=== PATIENT | female | born 1950 | race Hispanic/Latino ===

== ENCOUNTER 2021-03-27 12:49 | Emergency (ER) | payer MEDICARE ==
[~2021-03-27] VITALS: Ht 157.5 cm; Wt 56.7 kg
[2021-03-27] MEDS: SODIUM CHLORIDE 0.9% 1000ML 1,000 ML IV SCH ×2 (13:38→13:40)
[2021-03-27] MEDS ORDERED: SODIUM CHLORIDE 0.9% 1000ML 1,000 ML ONE (13:45)
[2021-03-27] MEDS ORDERED: ACETAMINOPHEN 325 MG TAB ONE (13:45)
[2021-03-27] MEDS ORDERED: ACETAMINOPHEN 325 MG TAB PO ONE (14:00)
[2021-03-27 16:00] VITALS: BP 210/85
== END 2021-03-27 16:00 | disposition home or self-care (01) ==
LOC: FSED 13:01
DX: I10 Essential (primary) hypertension (principal); F32.A Depression, unspecified
CPT/HCPCS: 36415; 80053; 81003; 82553; 84443; 84484; 85025; 93005; 99283; J7030

== ENCOUNTER 2021-10-15 18:38 | Emergency (ER) | payer MEDICARE ==
[~2021-10-15] VITALS: Ht 157.5 cm; Wt 56.7 kg
[2021-10-15] MEDS ORDERED: SODIUM CHLORIDE 0.9% 1000ML 1,000 ML ONE (20:39)
[2021-10-15] MEDS ORDERED: ONDANSETRON HCL INJ 2MG/ML 2ML 2 MG/ML VIAL ONE (20:39)
[2021-10-15] MEDS ORDERED: ONDANSETRON HCL INJ 2MG/ML 2ML 2 MG/ML VIAL IV STA (21:29)
[2021-10-15] MEDS ORDERED: SODIUM CHLORIDE 0.9% 1000ML 1,000 ML IV SCH (21:30)
[2021-10-15] MEDS ORDERED: KETOROLAC TROMETHAMINE 30 MG/ML VIAL IV STA (21:32)
[2021-10-15] MEDS ORDERED: PROMETHAZINE HCL (IM) 25 MG/ML VIAL IM ONE (21:40)
[2021-10-15] MEDS ORDERED: KETOROLAC TROMETHAMINE 30 MG/ML VIAL ONE (21:40)
[2021-10-15] MEDS ORDERED: PROMETHAZINE 12.5MG/ NACL 0.9% 12.5 MG/50 ML BAG IV ONE (21:45)
[2021-10-15] MEDS ORDERED: LABETALOL HCL 5 MG/ML 20ML VIAL IV STA (21:50)
[2021-10-15] MEDS ORDERED: SODIUM CHLORIDE 0.9% 500ML 500 ML ONE (22:59)
[2021-10-15] MEDS ORDERED: METOPROLOL TARTRATE 50 MG TAB PO ONE (23:30)
[2021-10-15] MEDS ORDERED: METOPROLOL TARTRATE 50 MG TAB ONE (23:38)
[2021-10-16] MEDS ORDERED: IOPAMIDOL 370 MG/ML 100 ML INFUS..BTL INJ ONE (00:17)
[2021-10-16] MEDS ORDERED: ONDANSETRON ODT4 MG PO (02:05)
[2021-10-16] MEDS ORDERED: NEURONTIN300 MG PO (02:07)
[2021-10-16] MEDS ORDERED: HYDROCODON-ACE1 EA11 PO (02:09)
[2021-10-16] MEDS ORDERED: METOPROLOL TAR100 MG PO (02:11)
== END 2021-10-16 02:30 | disposition home or self-care (01) ==
LOC: FSED 19:27
DX: K52.9 Noninfective gastroenteritis and colitis, unspecified (principal); I10 Essential (primary) hypertension; N28.9 Disorder of kidney and ureter, unspecified; R91.1 Solitary pulmonary nodule; M48.56XA Collapsed vertebra, not elsewhere classified, lumbar region, initial encounter for fracture; R31.29 Other microscopic hematuria; Z91.14 Patient's other noncompliance with medication regimen; Z79.899 Other long term (current) drug therapy
CPT/HCPCS: 70450; 71260; 74177; 80048; 80076; 81003; 82553; 84484; 85025; 85379; 93005; 99284; J1885; J2405; J2550; J7030; J7040; Q9967; U0002